=== PATIENT | female | born 1970 | race African-American/Black ===

== ENCOUNTER 2023-01-28 12:04 | Emergency (ER) | payer BC ==
[~2023-01-28] VITALS: Ht 167.6 cm; Wt 68.0 kg
[2023-01-28] MEDS ORDERED: DICLOFENAC SODI75 MG PO (14:13)
== END 2023-01-28 15:19 | disposition home or self-care (01) ==
LOC: ER 12:04
DX: S93.491A Sprain of other ligament of right ankle, initial encounter (principal); Y93.89 Activity, other specified; Y92.89 Other specified places as the place of occurrence of the external cause; X50.1XXA Overexertion from prolonged static or awkward postures, initial encounter